=== PATIENT | female | born 1990 | race Caucasian/White ===

== ENCOUNTER 2016-11-04 13:33 | Emergency (ER) | payer SELFPAY ==
--- NOTE | 2016-11-04 14:32 | ED Physician Documentation ---
Neck Injury/Pain - HISTORIAN Historian: patient - HPI Stated Complaint: Neck and Shoulder Pain Chief Complaint: Neck Pain Additional Information: rt wry neck w/o known etiology Onset: today Duration: continues in ED Recent Injury: No Context: lifting, turning, bending Where: home Other Injuries: neck Severity: moderate Quality: burning, sharp Associated Symptoms: denies: fever, chills, sweating, headache Exacerbated By: movement of neck Relieved By: remaining still Further Comments: yes (has several rt lower popst teeth fx at gumline "my boyfriend used to knowk them out") - ROS NEURO/PSYCH: denies: difficulty with speech, anxiety EYES/ENT: none CVS/RESP: none CONST: no problems GI/: denies: nausea, vomiting - PAST HX Past History: neck pain. denies: arthritis, compression fracture(s), back injury Cardiac Risk Factors: denies: cardiac disease, A-Fib Surgeries/Procedures: none Allergies/Adverse Reactions: Allergies Allergy/AdvReac Type Severity Reaction Status Date / Time Penicillins AdvReac Intermediate Nausea/Vomi Verified 11/04/16 13:47 ting Home Medications: Ambulatory Orders Medication Instructions Recorded NK [NK] 11/04/16 - SOCIAL HX Smoking History: non-smoker Alcohol Use: none Drug Use: none - FAMILY HX Family History: no significant history - VITAL SIGNS Vital Signs: Vital Signs Temp Pulse Resp BP Pulse Ox 98 F 110 H 20 161/91 99 11/04/16 13:35 11/04/16 13:35 11/04/16 13:35 11/04/16 13:35 11/04/16 13:35 - REVIEWED ASSESSMENT Nursing Assessment Reviewed: Yes Vitals Reviewed: Yes Neck Injury/Pain - Physical Exam General Appearance: mild distress EENT: No: pharyngeal erythema Neck: muscle spasm, decreased ROM Nexus Criteria: Nexus criteria neg. No: midline tenderness, distracting injury Back: non-tender Respiratory: chest non-tender, breath sounds nml CVS: heart sounds nml Abdomen: non-tender Skin: warm/dry, normal color. No: cyanosis, diaphoresis, jaundice Extremities: non-tender, normal range of motion Neuro/Psych: oriented x3, CN's nml as tested, sensation nml, motor nml, mood/ affect nml Discharge Clincal Impression: Wry neck Home Medications: Ambulatory Orders NK [NK] 11/04/16 Condition: Good Disposition: 01 HOME, SELF-CARE Decision to Admit: NO Decision Time: 14:36
[2016-11-04 14:34] VITALS: BP 118/68
== END 2016-11-04 14:32 | disposition home or self-care (01) ==
LOC: ED 13:33
DX: M43.6 Torticollis (principal)
CPT/HCPCS: 99282; 99283

== ENCOUNTER 2018-02-17 18:21 | Emergency (ER) | payer SELFPAY ==
[2018-02-17 18:51] VITALS: BP 135/88
--- NOTE | 2018-02-17 19:01 | ED Physician Documentation ---
General Adult - HISTORIAN Historian: patient - HPI Stated Complaint: Left pinkie pain Chief Complaint: General Adult Further Comments: yes (27 year old female patient presents with left 5th digit erythema and pain which started yesterday.) - ROS CONST: no problems EYES/ENT: none CVS/RESP: none GI/: none MS/SKIN/LYMPH: none NEURO/PSYCH: denies: headache - PAST HX Past History: other (peptic ulcer disease; GERD, depression. ) Allergies/Adverse Reactions: Allergies Allergy/AdvReac Type Severity Reaction Status Date / Time Penicillins AdvReac Intermediate Nausea/Vomi Verified 02/17/18 18:51 ting Home Medications: Ambulatory Orders Medication Instructions Recorded Cephalexin [Keflex] 500 mg PO TID #21 capsule 02/17/18 Clonazepam 0.25 mg PO TID 02/17/18 Omeprazole 40 mg PO 0700 02/17/18 Sertraline HCl [Zoloft] 50 mg PO DAILY 02/17/18 Trazodone HCl 100 mg PO HS 02/17/18 - SOCIAL HX Smoking History: cigarettes - FAMILY HX Family History: No - VITAL SIGNS Vital Signs: Vital Signs Temp Pulse Resp BP Pulse Ox 98.4 F 92 H 19 135/88 97 02/17/18 18:46 02/17/18 18:46 02/17/18 18:46 02/17/18 18:46 02/17/18 18:46 - REVIEWED ASSESSMENTS Nursing Assessment Reviewed: Yes Vitals Reviewed: Yes General Adult Physical Exam - PHYSICAL EXAM GENERAL APPEARANCE: mild distress EENT: eye inspection normal, BRENT RESPIRATORY: no resp distress CVS: reg rate & rhythm EXTREMITIES: normal range of motion, no evidence of injury, no edema, other ( left 5th digit erythema and edema noted) NEURO: oriented X3, motor nml, sensation nml, mood/affect nml Discharge Clincal Impression: Cellulitis of finger Qualifiers: Laterality: left Qualified Code(s): L03.012 - Cellulitis of left finger Prescriptions: Cephalexin [Keflex] 500 mg PO TID #21 capsule Referrals: Primary Doctor,No [Primary Care Provider] - 2 Days Additional Instructions: Clean wound twice a day with soap and water examination supervisor your antibiotics and start them today Condition: Stable Disposition: 01 HOME, SELF-CARE Decision to Admit: NO Decision Time: 19:00
== END 2018-02-17 19:12 | disposition home or self-care (01) ==
LOC: ED 18:21
DX: L03.012 Cellulitis of left finger (principal)
CPT/HCPCS: 99282

== ENCOUNTER 2018-05-19 09:50 | Emergency (ER) | payer SELFPAY ==
[2018-05-19] MEDS ORDERED: RACEPINEPHRINE HCL 1 EACH VIAL.NEB NEB ONE ×2 (09:53→09:54)
[2018-05-19] MEDS ORDERED: SODIUM CHLORIDE 3 ML VIAL.NEB IH ONE (09:53)
[2018-05-19] MEDS ORDERED: GUAIFENESIN/CODEINE 10 ML S/F LIQUID DOSE CUP PO ONE (09:56)
--- NOTE | 2018-05-19 10:28 | ED Physician Documentation ---
Upper Respiratory Symptoms - HISTORIAN Historian: patient - HPI Stated Complaint: short of breath Chief Complaint: Cough/ Upper Respiratory Further Comments: yes (27 year old female patient presents with complaints of coughing for the past 2 days. Patient frequently coughing on arrival.) - ROS CONST/EYES: denies: weakness CVS/RESP: none LYMPH: denies: leg swelling, rash, swollen glands, ankle swelling, other GI/: none NEURO/PSYCH: denies: fainting, dizziness, confusion, anxiety, depression, other MS/SKIN: denies: joint pain, muscle aches, rash, other - PAST HX Lung Disease: asthma, other (depression; bipolar, hx of suicidal ideation with psych admission) PE Risk Factors: hypertension Other History: other (GERD) Allergies/Adverse Reactions: Allergies Allergy/AdvReac Type Severity Reaction Status Date / Time Penicillins AdvReac Intermediate Nausea/Vomi Verified 05/19/18 10:01 ting Home Medications: Ambulatory Orders Medication Instructions Recorded Clonazepam 0.25 mg PO TID 02/17/18 Omeprazole 40 mg PO 0700 02/17/18 Sertraline HCl [Zoloft] 50 mg PO DAILY 02/17/18 Trazodone HCl 100 mg PO HS 02/17/18 - SOCIAL HX Smoking History: cigarettes - FAMILY HX Family History: denies: none - VITAL SIGNS Vital Signs: Vital Signs Temp Pulse Resp BP Pulse Ox 98.1 F 110 H 16 164/95 99 05/19/18 09:51 05/19/18 10:42 05/19/18 10:42 05/19/18 10:42 05/19/18 10:42 - REVIEWED ASSESSMENTS Nursing Assessment Reviewed: Yes Vitals Reviewed: Yes Progress - Progress Progress: Stridor resolved after racemic neb. Reviewed discharge instructions. Patient requested written prescription so she can take it to [facility] for "free prescriptions". ED Results Lab/Radiology - Orders Orders: ED Orders Category Date Time Status Codeine Phosphate/Guaifenesin [Robitussin AC] Med 05/19/18 09:56 Discontinued 10 ml PO NOW ONE Racepinephrine HCl [S-2] Med 05/19/18 09:53 Discontinued 1 each NEB .STK-MED ONE Racepinephrine HCl [S-2] Med 05/19/18 09:54 Discontinued 1 each NEB NOW ONE Sodium Chloride For Inhalation [Dey] Med 05/19/18 09:53 Discontinued 3 ml IH .STK-MED ONE HI FLOW NEBULIZER TX - INITIAL Routine Ther 05/19/18 Completed HIGH FLOW NEBULIZER Routine Ther 05/19/18 Completed OXIMETRY-SINGLE CHECK Routine Ther 05/19/18 Completed Upper Respiratory Symptoms - EXAM General Appearance: no acute distress, alert EENT: eyes nml inspection, lids & conjunct. nml, PERRL, ear nml, pain over sinuses, frontal, maxillary, ethmoid, nose nml, pharynx nml, airway nml Neck: other (stridor noted. ) Respiratory: no resp. distress, breath sounds nml, no pain on inspiration, speaks full sentences, no pleuritic chest pain Abdomen: non-tender, no organomegaly, nml bowel sounds, no distention CVS: reg rate & rhythm, heart sounds normal, equal pulses, no murmur, no gallop, PMI nml, no JVD, no friction rub, 24 Skin: color nml, no rash, warm,dry Extremities: non-tender, normal range of motion, no evidence of injury, no edema, J, MAT WEAVER Neuro/Psych: oriented x3, neuro intact, mood/affect nml, CN's nml as tested Discharge Clincal Impression: Acute pansinusitis Qualifiers: Recurrence: not specified as recurrent Qualified Code(s): J01.40 - Acute pansinusitis, unspecified Referrals: Primary Doctor,No [Primary Care Provider] - 2 Days Additional Instructions: electronic equipment set up operator your prescriptions and start them today. Tylenol as needed for discomfort and fever. electronic equipment set up operator an over the counter decongestant such as dayquil and Nyquil at your pharmacy. Treat your symptoms with over the counter medication. You may want to try Vicks rub on your chest and/or feet Cough drops as needed for cough and sore throat. Increase your fluid intake juices, hot tea, non-caffeinated beverages Use a humidifier in the room where you sleep. You can also sit in a steam filled bathroom 1-2 times a day. Tylenol or Ibuprofen as needed for fever, pain and body aches. Start daily allergy medication such as Claritin, Nafisa or Zyrtec. Start a daily nasal spray such as Flonase or Nasonex You may benefit from the use of a netti pot follow package instructions. See your primary care doctor after you have completed your antibiotic if you symptoms have not resolved. Many times it takes multiple rounds of antibiotics to resolve a sinus infection. Condition: Stable Disposition: 01 HOME, SELF-CARE Decision to Admit: NO Decision Time: 10:28
[2018-05-19 10:44] VITALS: BP 164/95
== END 2018-05-19 10:42 | disposition home or self-care (01) ==
LOC: ED 09:50
DX: J01.40 Acute pansinusitis, unspecified (principal)
CPT/HCPCS: 94640; 94760; 99283

== ENCOUNTER 2018-08-15 13:57 | Outpatient (CLI) | payer OTHER ==
--- NOTE | 2018-08-15 19:11 | Diagnostic Imaging Report ---
JEFFERSON HOFF [facility] [id number] [facility] [address] [address] Report Submission Date: Aug 15, 2018 2:50:33 PM WARDROBE ASSISTANT Patient Study Name: TORI SNIDER Date: Aug 15, 2018 2:01:50 PM WARDROBE ASSISTANT Modality Type: DX Gender: F Description: LOWER EXTREMITY : 91 Institution: [facility] Physician: JEFFERSON HOFF HISTORY: 27-year-old female with left foot pain, multiple recent falls. COMPARISON: None available TECHNIQUE: 3 views of the left foot were performed. FINDINGS: There is cortical irregularity of the lateral margin of the cuboid bone. No other evidence of fracture throughout the left foot. 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 There is 29 degrees hallux valgus. IMPRESSION: 1. Cortical irregularity of the lateral margin of the cuboid bone. If the patient is focally tender in this area, this may represent a mildly displaced fracture. 2. No other evidence of fracture throughout the left foot. 3. Hallux valgus. Electronically signed on Aug 15, 2018 2:50:33 PM JELENA by: Alex WELLS
== END 2018-08-15 14:03 | disposition home or self-care (01) ==
LOC: RAD 13:57
PROVIDERS: ATTEND Family Medicine
DX: M79.672 Pain in left foot (principal)
CPT/HCPCS: 73630

== ENCOUNTER 2018-09-10 11:56 | Outpatient (CLI) | payer OTHER ==
[2018-09-10 12:28] LABS: MEAN CORPUSCULAR HEMOGLOBIN 19.9 pg (28.0-34.0)
[2018-09-10 14:01] LABS: SEGMENTED NEUTROPHILS % 67 % (39-79)
[2018-09-10 14:02] LABS: BASOPHILS % 0 % (0-2); EOSINOPHILS % 3 % (0-7); MONOCYTES % 3 % (0-11)
[2018-09-10 18:06] LABS: eGFR (Non-African) > 60
--- NOTE | 2018-09-11 06:02 | Diagnostic Imaging Report ---
JEFFERSON HOFF [facility] [id number] [facility] [address] [address] Report Submission Date: Sep 10, 2018 12:53:08 PM SERVICE ENGINE REPAIRER Patient Study Name: TORI SNIDER Date: Sep 10, 2018 12:20:09 PM SERVICE ENGINE REPAIRER Modality Type: DX Gender: F Description: CHEST : 89 Institution: [facility] Physician: JEFFERSON HOFF Examination: PA and lateral chest. History: Evaluate lung chance. Findings: PA and lateral views of the chest demonstrates a normal cardiac and mediastinal silhouette. No focal infiltrate. No blunting of the costophrenic margins. Osseous structures are appropriate for age. Impression: No acute pulmonary process. Electronically signed on Sep 10, 2018 12:53:08 PM SERVICE ENGINE REPAIRER by: Tani WELLS
== END 2018-09-10 11:58 ==
LOC: LAB 11:56
PROVIDERS: ATTEND Family Medicine
DX: R61 Generalized hyperhidrosis (principal); D50.9 Iron deficiency anemia, unspecified; Z51.81 Encounter for therapeutic drug level monitoring
CPT/HCPCS: 36415; 71046; 80053; 85025

== ENCOUNTER 2018-11-06 14:29 | Emergency (ER) | payer OTHER ==
--- NOTE | 2018-11-06 14:33 | ED Physician Documentation ---
General Adult - HISTORIAN Historian: patient - HPI Stated Complaint: depression Chief Complaint: General Adult Onset: days ago Timing: still present Severity: moderate Further Comments: yes (Pt is a 28 yo female who has a hx of depression and had some suicide ideation while at her appointment at [facility] and was sent to ER. Pt felt suicidal but did not have a plan. Pt did overdose on Neurontin in 2012 as a suicide attempt. Pt is having marital problems with her husban who is communicating with other women and apparently trying to start a relationship with others.) - ROS CONST: no problems EYES/ENT: none CVS/RESP: none GI/: none MS/SKIN/LYMPH: none NEURO/PSYCH: depression - PAST HX Past History: other (anemia, chronic pain, depression, GERD, HTN, obesity) Allergies/Adverse Reactions: Allergies Allergy/AdvReac Type Severity Reaction Status Date / Time Penicillins AdvReac Intermediate Nausea/Vomi Verified 11/06/18 15:09 ting Home Medications: Ambulatory Orders Medication Instructions Recorded Sertraline HCl [Zoloft] 50 mg PO DAILY 02/17/18 Trazodone HCl 100 mg PO HS 02/17/18 Gabapentin 1 tab PO HS 11/06/18 Hydroxyzine HCl [Atarax] 1 tab PO TID PRN 11/06/18 Metoprolol Tartrate [Lopressor] 1 tab PO BID 11/06/18 - SOCIAL HX Smoking History: non-smoker - FAMILY HX Family History: No - VITAL SIGNS Vital Signs: Vital Signs Temp Pulse Resp BP Pulse Ox 164/95 05/19/18 10:42 - REVIEWED ASSESSMENTS Nursing Assessment Reviewed: Yes Vitals Reviewed: Yes Progress - Progress Progress: Pt admits to suicidal ideation earlier today, but states that she no longer is feeling like hurting herself or anyone else. Though she had suicidal thoughts earlier, she had no plan. Pt has a family member, González Oliver, who is with her in the ER and with whom she can stay until she resolves the situation with her . Pt had stopped taking her psychiatric medications a few days ago but intends to restart those and others that were newly prescribed earlier today and family member states that he will see that she follows through. Pt does not appear to be a danger to self or others at this time. She has an appointment with [facility] next week. D/c inst. Resume your medication regimen with new medications as directed. Follow up with [facility] as planned. General Adult Physical Exam - PHYSICAL EXAM GENERAL APPEARANCE: obese EENT: eye inspection normal, pharynx normal NECK: normal inspection, supple RESPIRATORY: no resp distress, chest non-tender, breath sounds normal CVS: reg rate & rhythm, heart sounds normal ABDOMEN: soft, no organomegaly, normal bowel sounds BACK: normal inspection, no CVA tenderness SKIN: warm/dry, normal color EXTREMITIES: non-tender, normal range of motion, no evidence of injury NEURO: oriented X3, motor nml, sensation nml Discharge Clincal Impression: depression Referrals: Jude Caruso MD [Primary Care Provider] - Condition: Stable Disposition: 01 HOME, SELF-CARE Decision to Admit: NO Decision Time: 16:15
[2018-11-06 17:17] VITALS: BP 164/95
[2018-11-06 20:17] LABS: eGFR (Non-African) > 60
[2018-11-06 20:19] LABS: MEAN CORPUSCULAR HEMOGLOBIN 19.5 pg (28.0-34.0)
[2018-11-06 20:21] LABS: APPEARANCE,URINE CLEAR (CLEAR); COLOR,URINE YELLOW (YELLOW); OCCULT BLOOD,URINE 3+ (NEGATIVE); PH URINE 5.5 (5.0 - 8.0); UROBILINOGEN URINE 0.2 Eu (0.2-1.0)
[2018-11-06 20:23] LABS: CANNABINOIDS NEGATIVE ng/mL (< 50); METHYLENEDIOXYMETHAMPHETAMINE NEGATIVE ng/mL (<500)
[2018-11-06 21:32] LABS: SEGMENTED NEUTROPHILS % 52 % (39-79)
[2018-11-06 21:33] LABS: ANISOCYTOSIS 2+ (NEGATIVE); EOSINOPHILS % 2 % (0-7); MONOCYTES % 7 % (0-11)
[2018-11-06 21:34] LABS: HYPOCHROMASIA 2+ (NEGATIVE); PLT EST. EST. AGREES W/PLT CT
== END 2018-11-06 16:25 | disposition home or self-care (01) ==
LOC: ED 14:29
DX: F32.9 Major depressive disorder, single episode, unspecified (principal)
CPT/HCPCS: 36415; 80053; 80377; 81002; 81025; 85025; 99282; 99283; G0481